=== PATIENT | female | born 1970 ===

== ENCOUNTER 2018-03-26 21:25 | Emergency (ER) | payer SELFPAY ==
[2018-03-26 22:01] VITALS: RESP 20; TEMP 98.3
[2018-03-26] MEDS ORDERED: Promethazine/Cod 6.25mg-10mg/5ml Syr UD PO STA (22:36)
[2018-03-26] MEDS ORDERED: Promethazine/Cod 6.25mg-10mg/5ml Syr UD ONE (22:55)
--- NOTE | 2018-03-26 23:31 | C.PDOC ---
History Of Present Illness 48 year old female presents to the ER with a complaint of cough and nasal congestion for the past 3 days that worsened today. Patient also developed pleuritic today which prompted visit. Patient has been taking OTC cough syrup with no relief. Denies SOB or fever. Time Seen by Provider: 03/26/18 22:09 Chief Complaint (Nursing): Cough, Cold, Congestion History Per: Patient History/Exam Limitations: no limitations Onset/Duration Of Symptoms: Days (3) Current Symptoms Are (Timing): Still Present Location Of Pain: None Sick Contacts (Context): None Associated Symptoms: Cough, Nasal Congestion, Other (Pleuritic pain, no SOB). denies: Fever Ear Symptoms: Bilateral: None Recent travel outside of the [place]: No Past Medical History Reviewed: Historical Data, Nursing Documentation, Vital Signs Vital Signs: Last Vital Signs Temp 98.3 F 03/26/18 21:57 Pulse 83 03/26/18 21:57 Resp 20 03/26/18 21:57 BP 138/81 03/26/18 21:57 Pulse Ox 95 03/26/18 21:57 - [facility] [employer] Procedures TETANUS TOXOID ADMINIST (10/15/14) Family History: States: Unknown Family Hx - Social History Hx Tobacco Use: No Hx Alcohol Use: No Hx Substance Use: No - Immunization History Hx Tetanus Toxoid Vaccination: No Hx Influenza Vaccination: No Hx Pneumococcal Vaccination: No Review Of Systems Constitutional: Negative for: Fever, Chills ENT: Positive for: Nose Congestion Cardiovascular: Negative for: Chest Pain, Palpitations Respiratory: Positive for: Cough, Pleuritic Pain. Negative for: Shortness of Breath Gastrointestinal: Negative for: Nausea, Vomiting Physical Exam - Physical Exam Appears: Non-toxic Skin: Normal Color, Warm, Dry Head: Atraumatic, Normacephalic Eye(s): bilateral: Normal Inspection Ear(s): Bilateral: Normal Nose: Normal Oral Mucosa: Moist Throat: Normal, No Erythema, No Exudate Chest: Symmetrical, No Tenderness Cardiovascular: Rhythm Regular Respiratory: Normal Breath Sounds, No Rales, No Rhonchi, No Wheezing Neurological/Psych: Oriented x3, Normal Speech ED Course And Treatment O2 Sat by Pulse Oximetry: 95 (Room air) Pulse Ox Interpretation: Normal Progress Note: Pt with a persistent cough in ED. Saline nebulizer, phenergan with codeine, and prednisone administered. Patient reports improvement of symptoms, she is resting comfortably in the ER in no acute respiratory distress, vitals are stable, will discharge home with Rx instructions to follow up with PMD. Disposition Counseled Patient/Family Regarding: Diagnosis, Need For Followup, Rx Given - Disposition Referrals: [facility] [Outside] Disposition: HOME/ ROUTINE Disposition Time: 23:29 Condition: STABLE Additional Instructions: Drink plenty of fluids Take medications as prescribed Follow up in clinic Return to ER if symptoms get worse Prescriptions: Benzonatate [Tessalon Perles] 200 mg PO TID #14 sgl Cetirizine HCl [Zyrtec] 10 mg PO DAILY #14 capsule Ibuprofen [Motrin] 600 mg PO Q6H #24 tab predniSONE [Prednisone] 40 mg PO DAILY #6 tab Instructions: Upper Respiratory Infection (ED) Forms: [employer] (Estonian) Print Language: MOHAWK - Clinical Impression Clinical Impression: Upper respiratory infection - PA / SDET / Resident Statement MD/DO has reviewed & agrees with the documentation as recorded. - Scribe Statement The provider has reviewed the documentation as recorded by the Scribmarianna Gonzalez All medical record entries made by the Kirby were at my direction and personally dictated by me. I have reviewed the chart and agree that the record accurately reflects my personal performance of the history, physical exam, medical decision making, and the department course for this patient. I have also personally directed, reviewed, and agree with the discharge instructions and disposition.
[2018-03-27 00:06] VITALS: BP 128/78; PULSE 88
[2018-03-27 01:17] VITALS: O2SAT 95
== END 2018-03-26 22:45 | disposition home or self-care (01) ==
LOC: C.ER 21:25
DX: J06.9 Acute upper respiratory infection, unspecified (principal)